=== PATIENT | male | born 1995 | race Caucasian/White ===

== ENCOUNTER 2019-05-05 16:37 | Emergency (ER) | payer OTHER ==
[~2019-05-05] VITALS: Ht 170.2 cm; Wt 59.0 kg
[2019-05-05 16:42] VITALS: BP 134/76
[2019-05-05 18:28] VITALS: BP 134/76
== END 2019-05-05 19:13 | disposition home or self-care (01) ==
LOC: MED 16:37
DX: B34.9 Viral infection, unspecified (principal); F17.210 Nicotine dependence, cigarettes, uncomplicated
CPT/HCPCS: 71045; 99283

== ENCOUNTER 2020-09-30 10:05 | Emergency (ER) | payer OTHER ==
[~2020-09-30] VITALS: Ht 170.2 cm; Wt 59.0 kg
[2020-09-30 10:09] VITALS: BP 134/82
--- NOTE | 2020-09-30 10:19 | NUR ---
Pt ambulated to the bathroom for urine collection
--- NOTE | 2020-09-30 10:21 | NUR ---
25 y.o male presents to the ed with bilateral testicular pain. 3/10 pain feels more of a constant discomfort. pt reports frequency with urination, red bumps on the shaft and testicles. AAOx4. VSS. PMH: Chlamydia Allergies: NKA
--- NOTE | 2020-09-30 10:25 | NUR ---
ERMD at bedside for examination
--- NOTE | 2020-09-30 10:42 | NUR ---
urine collected and sent to lab. received by sindi castillo
--- NOTE | 2020-09-30 10:44 | NUR ---
lab at bedside for blood cultures
--- NOTE | 2020-09-30 10:52 | NUR ---
ULTRASOUND AT BEDSIDE FOR TESTICLES
[2020-09-30 10:58] LABS: BILIRUBIN,URINE NEGATIVE (NEGATIVE); BLOOD, URINE NEGATIVE (NEGATIVE); COLOR,URINE YELLOW (YELLOW); LEUKOCYTE ESTERASE ,URINE NEGATIVE (NEGATIVE); NITRITE, URINE NEGATIVE (NEGATIVE); PH,URINE 6.5 (5.0-9.0); UGLUCOSE NEGATIVE (NEGATIVE)
[2020-09-30 11:14] LABS: APPEARANCE,URINE SLIGHTLY HAZY (CLEAR); RBC,URINE 0-5 /HPF (0-5); WBC,URINE 0-5 /HPF (0-5)
[2020-09-30 11:44] LABS: RAPID PLASMA REAGIN NON-REACTIVE (Non Reactiv)
--- NOTE | 2020-09-30 11:52 | NUR ---
Patient appears to be resting comfortably in bed. Vital Signs within normal limits. Respirations even and unlabored.
[2020-09-30] MEDS ORDERED: cefTRIAXone 250 MG in LIDOCAINE MPF 1% 0.9 ML IM ONE (12:35)
[2020-09-30] MEDS ORDERED: DOXYCYCLINE 100 MG CAP PO STA (12:35)
[2020-09-30] MEDS ORDERED: DOXY-487 PO (12:37)
[2020-09-30] MEDS ORDERED: cefTRIAXone 250 MG VIAL ONE (12:45)
[2020-09-30] MEDS ORDERED: LIDOCAINE MPF 1% 5 ML ONE (12:45)
--- NOTE | 2020-09-30 12:50 | NUR ---
MD at bedside teaching patient and re-examination
[2020-09-30 13:08] VITALS: BP 110/69
--- NOTE | 2020-09-30 13:08 | NUR ---
Patient discharged with v/s stable. Pain is a 3/10 discomfort but tolerable. Written and verbal after care instructions given and explained. Patient alert, oriented and verbalized understanding of instructions. Ambulatory with steady gait. All questions addressed prior to discharge. ID band removed. Patient advised to follow up with PMD. Rx of DOXYCYCLINE HYCLATE given. Patient educated on indication of medication including possible reaction and side effects. Opportunity to ask questions provided and answered.
== END 2020-09-30 13:08 | disposition home or self-care (01) ==
LOC: MED 10:05
DX: N50.811 Right testicular pain (principal); N50.812 Left testicular pain; N43.3 Hydrocele, unspecified; Z11.3 Encounter for screening for infections with a predominantly sexual mode of transmission; Z79.899 Other long term (current) drug therapy
CPT/HCPCS: 36415; 76870; 81001; 86592; 86703; 87086; 87491; 96372; 99284; J0696; J2001

== ENCOUNTER 2021-09-08 20:57 | Emergency (ER) | payer OTHER ==
[~2021-09-08] VITALS: Ht 167.6 cm; Wt 61.7 kg
[~2021-09-08 20:57] MED LIST: DOXY-487 PO
[2021-09-08 21:05] VITALS: BP 149/79
--- NOTE | 2021-09-08 21:10 | NUR ---
PATIENT TO LOBBY
--- NOTE | 2021-09-08 22:25 | NUR ---
PT TO XR VIA WC
--- NOTE | 2021-09-09 00:21 | NUR ---
REGAN CALLED NO ANSWER
--- NOTE | 2021-09-09 00:22 | NUR ---
PATIENT LEFT WITHOUT BEING SEEN BY DR. MYERS. NO FURTHER CARE PROVIDED FOR PATIENT.
--- NOTE | 2021-09-09 00:27 | NUR ---
CALLED FOT THE SECOND TIME , NO RESPONSE
--- NOTE | 2021-09-09 00:32 | NUR ---
CALLED FOR THE THIRD TIME, NO RESPONSE
--- NOTE | 2021-09-09 01:30 | NUR ---
PATIENT LEFT WITHOUT BEING SEEN BY DR. MYERS. NO FURTHER CARE PROVIDED FOR PATIENT.
== END 2021-09-09 00:22 | disposition left against medical advice (07) ==
LOC: MED 20:57
DX: R51.9 Headache, unspecified (principal); R22.0 Localized swelling, mass and lump, head; Z53.21 Procedure and treatment not carried out due to patient leaving prior to being seen by health care provider
CPT/HCPCS: 70150; 99281; 99284